=== PATIENT | male | born 1950 | race Caucasian/White ===

== ENCOUNTER 2016-08-27 09:06 | Outpatient (CLI) | payer MEDICARE, BC ==
[2015-06-26 17:54] VITALS: BP 146/97
[2016-08-27 09:53] LABS: eGFR (African) > 60; eGFR (Non-African) > 60
== END 2016-08-27 09:07 ==
LOC: LAB 09:06
PROVIDERS: ATTEND Family Medicine
DX: R73.9 Hyperglycemia, unspecified (principal); I10 Essential (primary) hypertension; Z11.59 Encounter for screening for other viral diseases
CPT/HCPCS: 36415; 80053; 80061; 83036; 86803

== ENCOUNTER 2017-01-18 09:03 | Outpatient (CLI) | payer MEDICARE, BC ==
[2015-06-26 17:54] VITALS: BP 146/97
[2017-01-18 09:58] LABS: eGFR (African) > 60; eGFR (Non-African) > 60
== END 2017-01-18 09:04 ==
LOC: LAB 09:03
PROVIDERS: ATTEND Family Medicine
DX: R73.9 Hyperglycemia, unspecified (principal)
CPT/HCPCS: 36415; 80053; 83036

== ENCOUNTER 2017-04-22 09:15 | Outpatient (CLI) | payer MEDICARE, BC ==
[2015-06-26 17:54] VITALS: BP 146/97
== END 2017-04-22 09:16 ==
LOC: LAB 09:15
PROVIDERS: ATTEND Family Medicine
DX: E11.9 Type 2 diabetes mellitus without complications (principal)
CPT/HCPCS: 36415; 82043; 83036

== ENCOUNTER 2017-07-26 09:30 | Outpatient (CLI) | payer MEDICARE, BC ==
[2015-06-26 17:54] VITALS: BP 146/97
[2017-07-26 10:31] LABS: eGFR (African) > 60; eGFR (Non-African) > 60
== END 2017-07-26 09:32 ==
LOC: LAB 09:30
PROVIDERS: ATTEND Family Medicine
DX: E11.9 Type 2 diabetes mellitus without complications (principal); I10 Essential (primary) hypertension
CPT/HCPCS: 36415; 80053; 80061; 82043; 83036

== ENCOUNTER 2017-10-25 10:27 | Outpatient (CLI) | payer MEDICARE, BC ==
[2015-06-26 17:54] VITALS: BP 146/97
[2017-10-25 16:24] LABS: TOTAL PROTEIN 7.2 g/dL (6.0-8.5)
== END 2017-10-25 10:30 ==
LOC: LAB 10:27
PROVIDERS: ATTEND Family Medicine
DX: E11.9 Type 2 diabetes mellitus without complications (principal)
CPT/HCPCS: 36415; 80053; 83036

== ENCOUNTER 2018-01-25 10:33 | Outpatient (CLI) | payer MEDICARE, BC ==
[2015-06-26 17:54] VITALS: BP 146/97
[2018-01-25] MEDS ORDERED: ALBUTEROL SULFATE 2.5 MG/3 ML AMPUL.NEB NEB ONE (11:15)
[2018-01-25 12:45] LABS: eGFR (African) > 60; eGFR (Non-African) > 60
== END 2018-01-25 13:51 ==
LOC: RT 10:33
PROVIDERS: ATTEND Family Medicine
DX: R09.02 Hypoxemia (principal); I10 Essential (primary) hypertension; E11.9 Type 2 diabetes mellitus without complications; Z79.4 Long term (current) use of insulin
CPT/HCPCS: 36415; 80053; 83036; 94060

== ENCOUNTER 2018-04-28 14:30 | Outpatient (CLI) | payer MEDICARE, BC ==
[2015-06-26 17:54] VITALS: BP 146/97
[2018-04-28 15:28] LABS: eGFR (Non-African) > 60
== END 2018-04-28 14:35 | disposition home or self-care (01) ==
LOC: LAB 14:30
PROVIDERS: ATTEND Family Medicine
DX: I10 Essential (primary) hypertension (principal); E11.9 Type 2 diabetes mellitus without complications
CPT/HCPCS: 36415; 80053; 80061; 83036

== ENCOUNTER 2018-07-28 08:43 | Outpatient (CLI) | payer OTHER ==
[2015-06-26 17:54] VITALS: BP 146/97
[2018-07-28 09:18] LABS: eGFR (Non-African) > 60
== END 2018-07-28 08:45 ==
LOC: LAB 08:43
PROVIDERS: ATTEND Family Medicine
DX: E11.9 Type 2 diabetes mellitus without complications (principal); I10 Essential (primary) hypertension
CPT/HCPCS: 36415; 80053; 80061; 82043; 83036

== ENCOUNTER 2018-12-01 09:57 | Outpatient (CLI) | payer OTHER ==
[2015-06-26 17:54] VITALS: BP 146/97
[2018-12-12 09:04] LABS: HDL 33 mg/dL (>40); eGFR (Non-African) > 60
== END 2018-12-01 10:00 ==
LOC: LAB 09:57
PROVIDERS: ATTEND Family Medicine
DX: E78.00 Pure hypercholesterolemia, unspecified (principal)
CPT/HCPCS: 36415; 80053; 80061